=== PATIENT | male | born 1995 | race Caucasian/White ===

== ENCOUNTER 2020-01-28 20:26 | Emergency (ER) | payer OTHER, SELFPAY ==
[2020-01-28 20:36] VITALS: BP 147/85; PULSE 83; RESP 18; TEMP 36.4; O2SAT 100; BMI 28.2
--- NOTE | 2020-01-28 22:15 | W.ED.ABDPA2 ---
Documented by User: Tristan Whitlock DO 01/30/20 07:12 HPI - Abdominal Pain General: Chief Complaint: Abdominal Pain Stated Complaint: abd pain/vomiting Time Seen by Provider: 01/28/20 22:13 History of Present Illness: HPI narrative: 25 yo male presents complaining of epigastric pain radiating to his left upper quadrant. Began earlier today he said he ate a brunch some greasy food fried couple hours later he had abdominal pain that began as epigastric radiating to his left upper quadrant interestingly though when I examined him he actually complained mostly of pain in the right lower quadrant. Shortly after it began he had multiple episodes of vomiting to the point where he was just dry heaving. He tried to drink some water and threw that up as well. He denies hematochezia or melena hematemesis or coffee-ground emesis he had no diarrhea no acholic stools. States about 7 to 8 years ago had a similar episode and eventually they thought he was just constipated he does not have any anorexia at this time he states he feels like he could eat. He denies any UTI symptoms no recent upper respiratory symptoms no shortness of breath no chest pain no other recent illness. No household contacts that have been ill recently. MD elicited complaint: abdominal pain Associated Symptoms: Reports nausea and vomiting; Denies bloating, chills, coffee ground emesis, constipation, diarrhea, dysuria, fever(s), hematochezia, hematemesis and melena Review of Systems Const: Denies: fever, chills, body aches, change in appetite, fatigue or malaise ENMT: Denies: throat pain, ear pain, nasal discharge or nasal congestion Card: Denies: chest pain, edema, shortness of breath on exertion or shortness of breath when lying down Resp: Denies: shortness of breath, productive cough or non-productive cough GI: Reports: abdominal pain, nausea and vomiting; Denies: vomiting blood, coffee grounds in vomit, diarrhea, constipation, bloating, blood in stool or black tarry stool : Denies: flank pain, painful urination, urinary frequency or urinary urgency Skin/Breast: Denies: rash or itching PFSH ED PFSH: Social History Smoking and tobacco status: smoker, details unknown Physical Exam Const: COMMON NORMALS: no apparent distress GENERAL APPEARANCE: cooperative and comfortable ORIENTATION/CONSCIOUSNESS: Yes awake, Yes oriented to person, Yes oriented to place and Yes oriented to time HENMT: COMMON NORMALS: normocephalic, head/scalp atraumatic, hearing grossly normal bilaterally, external ears normal, EAC's normal, TM's normal bilaterally, nasal mucous membranes and turbinates normal, moist oral mucous membranes and oropharynx normal HEAD & SCALP: normocephalic and atraumatic NOSE: nasal mucous membranes and turbinates normal EXTERNAL EAR: Yes external ears normal EXTERNAL AUDITORY CANAL: EAC's normal TYMPANIC MEMBRANE: TM's normal bilaterally Eye: COMMON NORMALS: PERRL, EOMs intact bilaterally, conjunctivae normal and no scleral icterus CONJUNCTIVA: Yes conjunctivae normal PUPIL: Yes PERRL Neck/C-Spine: COMMON NORMALS: full ROM, no lymphadenopathy, supple and no JVD Lymph: LYMPHATIC: no lymphadenopathy noted and no lymphedema noted Resp: COMMON NORMALS: normal respiratory effort, no retractions, no use of accessory muscles and clear to auscultation bilaterally AUSCULTATION: clear to auscultation bilaterally Cardio: COMMON NORMALS: no JVD, regular rate, regular rhythm and no murmurs RATE: regular rate RHYTHM: regular rhythm GI: COMMON NORMALS: soft to palpation and no hepatosplenomegaly AUSCULTATION: Yes normoactive bowel sounds PALPATION: Yes soft, Yes tender (Pain to percussion mild rebound pain no peritoneal signs) Details: RLQ, No guarding, Yes no hepatosplenomegaly and Yes rebound tenderness present Details: McBurney's point Extremity: COMMON NORMALS: normal to inspection, normal capillary refill, no clubbing, cyanosis or edema, no calf tenderness and no pedal edema Neuro: SENSORIUM/ORIENTATION: Yes oriented to person, Yes oriented to place and Yes oriented to time Skin: COMMON NORMALS: no rashes or lesions noted GENERAL SKIN EXAM: no rashes or lesions noted Course Vital Signs: Vital signs: Vital Signs Temperature 97.6 F 01/28/20 20:36 Pulse Rate 78 01/29/20 01:41 Respiratory Rate 18 01/29/20 01:41 Blood Pressure 128/64 01/29/20 01:41 Pulse Oximetry 100 01/29/20 01:41 MDM - Abdominal Pain MDM Narrative: Medical decision making narrative: Initially seen by myself work-up started. Care turned over to Dr. Schroeder at end of my shift. Lab Data: Labs: Lab Results 01/28/20 01/28/20 01/28/20 Range/Units 22:43 22:43 23:17 WBC 16.7 H (4.0-10.0) 10^3/ uL RBC 5.48 H (4.1-5.3) 10^6/u L Hgb 16.2 (11.7-16.6) g/dL Hct 48.2 (42.0-52.0) % MCV 88.0 (80-94) fL MCH 29.6 (28.0-34.0) pg MCHC 33.6 (30.0-36.0) g/dL RDW 12.2 (12.1-15.1) % Plt Count 183 (130-400) 10^3/c mm MPV 10.3 (7.4-10.4) fL Neut % (Auto) 86.7 % Lymph % (Auto) 4.6 % Clare % (Auto) 8.3 % Eos % (Auto) 0.0 % Baso % (Auto) 0.1 % Neut # (Auto) 14.5 H (1.8-7.7) 10^3/u L Lymph # (Auto) 0.8 (0.8-4.8) 10^3/u L Clare # (Auto) 1.4 H (0.2-0.9) 10^3/u L Eos # (Auto) 0.0 (0.0-0.8) 10^3/u L Baso # (Auto) 0.0 (0.0-0.1) 10^3/u L Nucleated RBC % (a uto) 0 % Nucleated RBCs # 0.0 /100WBC Sodium 138 (136-145) mmol/L Potassium 4.2 (3.5-5.1) mmol/L Chloride 101 (98-107) mmol/L Carbon Dioxide 25 (22-29) mmol/L Anion Gap 16.2 (5-19) BUN 8 (6-20) mg/dL Creatinine 0.8 (0.7-1.2) mg/dL GFR Calculation 117.8 (90-130) mL/min Glucose 116 H (65-115) mg/dL Calculated Osmolal ity 283 L (285-295) mOsm/k g Calcium 10.0 (8.5-10.5) mg/dL Total Bilirubin 1.0 (0.15-1.2) mg/dL AST 18 (0-40) U/L ALT 26 (0-41) U/L Alkaline Phosphata se 72 (40-130) IU/L Total Protein 7.7 (6.6-8.7) g/dL Albumin 5.1 (3.5-5.2) g/dL Globulin 2.6 (1.3-4.6) g/dL Lipase 16 (13-60) U/L Urine Color Yellow (Yellow) Urine Appearance Hazy A (CLEAR) Urine pH 7 (5-7) Ur Specific Gravit y 1.010 (1.005-1.030) Urine Protein Neg (Negative) Urine Glucose (UA) Norm (Normal) Urine Ketones 1+ H (Negative) Urine Blood Neg (Negative) Urine Nitrate Negative (Negative) Urine Bilirubin Neg (NEGATIVE) Urine Urobilinogen Norm (Negative) mg/dL Ur Leukocyte Jewels ase Negative (Negative) Urine RBC 0-4 H (0-2) /hpf Urine WBC 0-4 H (0-5) /hpf Ur Squamous Epith Cells 0-4 H (0-5) Amorphous Sediment 2+ Urine Bacteria Trace (NONE) Urine Mucus Trace Discharge Plan Discharge Patient Disposition: Home, Self-Care Clinical Impression: Colitis Condition: Stable Prescriptions: New ciprofloxacin HCl 500 mg tablet 500 mg PO BID Qty: 20 RF: 0 Flagyl 500 mg tablet 500 mg PO Q8H 10 Days Qty: 30 RF: 0 [place] 7.5-325 mg tablet 1 tab PO Q6H PRN (Reason: pain) Qty: 10 RF: 0 Zofran 4 mg tablet 4 mg PO QID PRN (Reason: nausea and vomiting) Qty: 10 RF: 0 Discharge Orders: Discharge Order (Routine); Ordered 01/29/20 Ordered By: Juan Carlos Schroeder Referrals: Randy Arias FNP [Primary Care Provider] - 4-7 days Discharge Diet: Advance as tolerated and Clear Liquid Discharge Activity: Increase activity as tolerated Patient Instructions: Infectious Colitis (ED) Activity Restrictions/Additional Instructions: Return for fever greater than 100 despite 2-3 doses of antibiotics, worsening pain despite treatment, vomiting liquids or medications, blood in the stool, other concerning symptoms. Stand Alone Forms: Work/School Release Discharge Date/Time: 01/29/20 01:48 Coding Level of Care Code ED Leach Cell Operator for Chg Fwd Exam Comprehensive Documented by User: Juan Carlos Schroeder DO 01/29/20 02:36 HPI - Abdominal Pain General: Chief Complaint: Abdominal Pain Stated Complaint: abd pain/vomiting Time Seen by Provider: 01/28/20 22:13 PFSH ED PFSH: Social History Smoking and tobacco status: smoker, details unknown Course Consultations: Consultation #1: Heri Vital Signs: Vital signs: Vital Signs Temperature 97.6 F 01/28/20 20:36 Pulse Rate 78 01/29/20 01:41 Respiratory Rate 18 01/29/20 01:41 Blood Pressure 128/64 01/29/20 01:41 Pulse Oximetry 100 01/29/20 01:41 MDM - Abdominal Pain MDM Narrative: Medical decision making narrative: 25-year-old male with right-sided belly pain. He has a white blood cell count of 16.7. His other laboratory is benign. His CT shows colitis with wall edema of the a sending colon. It involves the appendix, but it appears to be in a sending colitis as opposed to localized appendicitis. Discussed the case with surgery. This patient is feeling improved on reexamination. There is been no further vomiting. The surgeon gave the patient the option of going home on antibiotics for the colitis with symptom control versus admission with the same treatment. The patient discussed this with his mother, and they both agreed to go home on medication, and return for any worsening symptoms. Lab Data: Labs: Lab Results 01/28/20 01/28/20 01/28/20 Range/Units 22:43 22:43 23:17 WBC 16.7 H (4.0-10.0) 10^3/ uL RBC 5.48 H (4.1-5.3) 10^6/u L Hgb 16.2 (11.7-16.6) g/dL Hct 48.2 (42.0-52.0) % MCV 88.0 (80-94) fL MCH 29.6 (28.0-34.0) pg MCHC 33.6 (30.0-36.0) g/dL RDW 12.2 (12.1-15.1) % Plt Count 183 (130-400) 10^3/c mm MPV 10.3 (7.4-10.4) fL Neut % (Auto) 86.7 % Lymph % (Auto) 4.6 % Clare % (Auto) 8.3 % Eos % (Auto) 0.0 % Baso % (Auto) 0.1 % Neut # (Auto) 14.5 H (1.8-7.7) 10^3/u L Lymph # (Auto) 0.8 (0.8-4.8) 10^3/u L Clare # (Auto) 1.4 H (0.2-0.9) 10^3/u L Eos # (Auto) 0.0 (0.0-0.8) 10^3/u L Baso # (Auto) 0.0 (0.0-0.1) 10^3/u L Nucleated RBC % (a uto) 0 % Nucleated RBCs # 0.0 /100WBC Sodium 138 (136-145) mmol/L Potassium 4.2 (3.5-5.1) mmol/L Chloride 101 (98-107) mmol/L Carbon Dioxide 25 (22-29) mmol/L Anion Gap 16.2 (5-19) BUN 8 (6-20) mg/dL Creatinine 0.8 (0.7-1.2) mg/dL GFR Calculation 117.8 (90-130) mL/min Glucose 116 H (65-115) mg/dL Calculated Osmolal ity 283 L (285-295) mOsm/k g Calcium 10.0 (8.5-10.5) mg/dL Total Bilirubin 1.0 (0.15-1.2) mg/dL AST 18 (0-40) U/L ALT 26 (0-41) U/L Alkaline Phosphata se 72 (40-130) IU/L Total Protein 7.7 (6.6-8.7) g/dL Albumin 5.1 (3.5-5.2) g/dL Globulin 2.6 (1.3-4.6) g/dL Lipase 16 (13-60) U/L Urine Color Yellow (Yellow) Urine Appearance Hazy A (CLEAR) Urine pH 7 (5-7) Ur Specific Gravit y 1.010 (1.005-1.030) Urine Protein Neg (Negative) Urine Glucose (UA) Norm (Normal) Urine Ketones 1+ H (Negative) Urine Blood Neg (Negative) Urine Nitrate Negative (Negative) Urine Bilirubin Neg (NEGATIVE) Urine Urobilinogen Norm (Negative) mg/dL Ur Leukocyte Jewels ase Negative (Negative) Urine RBC 0-4 H (0-2) /hpf Urine WBC 0-4 H (0-5) /hpf Ur Squamous Epith Cells 0-4 H (0-5) Amorphous Sediment 2+ Urine Bacteria Trace (NONE) Urine Mucus Trace Discharge Plan Discharge Patient Disposition: Home, Self-Care Clinical Impression: Colitis Condition: Stable Prescriptions: New ciprofloxacin HCl 500 mg tablet 500 mg PO BID Qty: 20 RF: 0 Flagyl 500 mg tablet 500 mg PO Q8H 10 Days Qty: 30 RF: 0 [place] 7.5-325 mg tablet 1 tab PO Q6H PRN (Reason: pain) Qty: 10 RF: 0 Zofran 4 mg tablet 4 mg PO QID PRN (Reason: nausea and vomiting) Qty: 10 RF: 0 Discharge Orders: Discharge Order (Routine); Ordered 01/29/20 Ordered By: Juan Carlos Schroeder Referrals: Randy Arias FNP [Primary Care Provider] - 4-7 days Discharge Diet: Advance as tolerated and Clear Liquid Discharge Activity: Increase activity as tolerated Patient Instructions: Infectious Colitis (ED) Activity Restrictions/Additional Instructions: Return for fever greater than 100 despite 2-3 doses of antibiotics, worsening pain despite treatment, vomiting liquids or medications, blood in the stool, other concerning symptoms. Stand Alone Forms: Work/School Release Discharge Date/Time: 01/29/20 01:48 Coding Level of Care Code ED Leach Cell Operator for Chg Fwd Exam Comprehensive
[2020-01-28 22:24] VITALS: BP 153/68; PULSE 85; RESP 19; O2SAT 99
[2020-01-28] MEDS: ondansetron 2 mg/ML SDV 2 mL 4 MG IVP (22:30)
[2020-01-28] MEDS: sodium chloride 0.9% 1,000 ML 999 ML IV (22:30)
--- NOTE | 2020-01-28 22:31 | CTR_ITS ---
PROCEDURE INFORMATION: Exam: CT Abdomen And Pelvis With Contrast Exam date and time: 01/28/2020 10:45 PM Age: 25 years old Clinical indication: Abdominal pain; Generalized; Additional info: Abd pain TECHNIQUE: Imaging protocol: Computed tomography of the abdomen and pelvis with intravenous contrast. Total DLP: 847.91 mGy-cm Radiation optimization: All CT scans at this facility use at least one of these dose optimization techniques: automated exposure control; mA and/or kV adjustment per patient size (includes targeted exams where dose is matched to clinical indication); or iterative reconstruction. Contrast material: OMNI 300; Contrast volume: 95 ml; Contrast route: IV; COMPARISON: No relevant prior studies available. FINDINGS: Liver: Mild hepatomegaly. Gallbladder and bile ducts: Normal. No calcified stones. No ductal dilation. Pancreas: Normal. No ductal dilation. Spleen: Normal. No splenomegaly. Adrenals: Normal. No mass. Kidneys and ureters: Homogeneous 8 mm cortical lesion upper left kidney does not require specific follow-up. Stomach and bowel: There is thickening of the ascending colonic wall with hazy increased density in the pericolic fat. The appendix appears thickened as well although this is favored to be secondary to the colonic process. Appendix: See Stomach and bowel finding. Intraperitoneal space: Small free fluid in pelvis. Vasculature: Unremarkable. No abdominal aortic aneurysm. Lymph nodes: Unremarkable. No enlarged lymph nodes. Bladder: Unremarkable as visualized. Reproductive: Unremarkable as visualized. Bones/joints: No acute fracture. Soft tissues: Unremarkable. CT/CT abdomen pelvis w con* [id number] IMPRESSION: Colitis involving ascending colon. Radiation Dose CTDIVOL = (mGy): DLP = 847.91 (mGy-cm)
[2020-01-28 22:54] LABS: Basophils % 0.1 %; Hematocrit 48.2 % (42.0-52.0); Hemoglobin 16.2 g/dL (11.7-16.6); Lymphocytes # 0.8 10^3/uL (0.8-4.8); Lymphocytes % 4.6 %; Mean Corpuscular HGB Conc 33.6 g/dL (30.0-36.0); Mean Corpuscular Hemoglobin 29.6 pg (28.0-34.0); Mean Platelet Volume 10.3 fL (7.4-10.4); Monocytes # 1.4 10^3/uL (0.2-0.9); Monocytes % 8.3 %; Neutrophils # 14.5 10^3/uL (1.8-7.7); Neutrophils % 86.7 %; Nucleated Red Blood Cells % 0 %; Platelet Count 183 10^3/cmm (130-400); Red Blood Count 5.48 10^6/uL (4.1-5.3); Red Cell Distribution Width 12.2 % (12.1-15.1); White Blood Count 16.7 10^3/uL (4.0-10.0)
[2020-01-28 23:17] LABS: Alanine Aminotransferase 26 U/L (0-41); Albumin Level 5.1 g/dL (3.5-5.2); Alkaline Phosphatase 72 IU/L (40-130); Anion Gap 16.2 (5-19); Aspartate Amino Transferase 18 U/L (0-40); Blood Urea Nitrogen 8 mg/dL (6-20); Carbon Dioxide 25 mmol/L (22-29); Chloride 101 mmol/L (98-107); Globulin 2.6 g/dL (1.3-4.6); Glomerular Filtration Rate 117.8 mL/min (90-130); Glucose 116 mg/dL (65-115); Lipase 16 U/L (13-60); Osmolality Calculated 283 mOsm/kg (285-295); Potassium 4.2 mmol/L (3.5-5.1); Sodium 138 mmol/L (136-145); Total Protein 7.7 g/dL (6.6-8.7)
[2020-01-28] MEDS: iohexol 300 mg/mL 100 mL Btl IV (23:21)
[2020-01-28 23:33] VITALS: BP 132/78; PULSE 68; RESP 16; O2SAT 98
[2020-01-28 23:37] LABS: Add Urine Microscopic? YES; Bilirubin Urine Neg (NEGATIVE); Blood Urine Neg (Negative); Glucose Urine UA Norm (Normal); Ketones Urine 1+ (Negative); Leukocyte Esterase Urine Negative (Negative); Nitrate Urine Negative (Negative); Protein Urine Neg (Negative); Urine Appearance Hazy (CLEAR); Urine Color Yellow (Yellow); Urobilinogen Urine Norm (Negative); pH Urine 7 (5-7)
[2020-01-28 23:49] LABS: Add Urine Culture? No; Amorphous Sediment Urine 2+; Bacteria Urine TRACE; Mucus Urine TRACE; RBC Urine 0-4 /hpf (0-2); Squamous Epithelial Cell Urine 0-4 (0-5); WBC Urine 0-4 /hpf (0-5)
[2020-01-29 00:12] VITALS: BP 111/54; PULSE 68; RESP 16; O2SAT 97
[2020-01-29 00:58] VITALS: BP 116/67; PULSE 84; RESP 16; O2SAT 100
[2020-01-29 01:12] VITALS: BP 124/70; PULSE 68; RESP 16; O2SAT 100
[2020-01-29] MEDS: ciprofloxacin 500 mg Tablet PO (01:35)
[2020-01-29] MEDS: metroNIDAZOLE 500 MG Tablet PO (01:35)
[2020-01-29 01:41] VITALS: BP 128/64; PULSE 78; RESP 18; O2SAT 100
== END 2020-01-29 01:48 | disposition home or self-care (01) ==
PROVIDERS: Emergency Provider Family Medicine; Family Provider Nurse Practitioner Family; PCP Nurse Practitioner Family
DX: K52.9 Noninfective gastroenteritis and colitis, unspecified (principal); F17.210 Nicotine dependence, cigarettes, uncomplicated
CPT/HCPCS: 12345; 74177; 80053; 81001; 83690; 85025; 96360; 96361; 96374; 96375; 99283; A9270; J2405; J7030; Q9967